=== PATIENT | male | born 1990 | race Caucasian/White ===

== ENCOUNTER 2017-03-19 18:05 | Emergency (ER) | payer OTHER ==
[~2017-03-19] VITALS: Wt 97.5 kg
[2017-03-19] MEDS ORDERED: TAMIFLU 75MG CA75 MG PO (20:22)
[2017-03-19] MEDS ORDERED: ZOFRAN ODT4 MG SL (20:22)
[2017-03-19] MEDS ORDERED: Motrin,Rufen800 MG PO (20:22)
== END 2017-03-19 20:29 | disposition home or self-care (01) ==
LOC: ED 18:05
DX: J10.1 Influenza due to other identified influenza virus with other respiratory manifestations (principal); Z98.890 Other specified postprocedural states